=== PATIENT | male | born 1965 | race Caucasian/White ===

== ENCOUNTER 2017-04-13 08:48 | Emergency (ER) ==
[2017-04-13 08:57] VITALS: TEMP 98.2; BMI 26.9
--- NOTE | 2017-04-13 09:14 | ED.PDOC ---
General ED Provider: Dr. ÁLVARO GALINDO Chief Complaint: Tooth Problem Stated Complaint: Tooth Ache: Onset Wednesday evening. Became very uncomfortable yesterday and attempted to see dentist but ended up going to urgent care in [place], [place]. Given Rx Amoxicillin and took 1 dose yesterday which he tolerated but the 2nd dose taken last evening caused nausea and vomiting. This morning pain more severe with associate swelling in Rt sided maxillary region extending to orbit. Contacte Dentist who advised he neede to come to ER for evaluation and possible IV antibiotics. Time Seen by Physician: 09:15 Mode of Arrival: Walk-In Information Source: Patient Nursing and Triage Documentation Reviewed and Agree: Yes Reviewed sepsis parameters & appropriate labs ordered?: Yes System Inflammatory Response Syndrome: Not Applicable Sepsis Protocol: For patient's 13 years and over: Temp is 96.8 and below OR 101 and greater Pulse >90 BPM Resp >20/minute Acutely Altered Mental Status Are patient's symptoms suggestive of a new infection, such as: -Pneumonia -Skin, Soft Tissue -Endocarditis -UTI -Bone, Joint Infection -Implantable Device -Acute Abdominal Infection -Wound Infection -Meningitis -Blood Stream Catheter Infection -Unknown System Inflammatory Response Syndrome: Not Applicable EENT Complaint Exam - Dental/Oral Complaint/Exam Onset/Duration: 48 hours Symptoms Are: Worse Timing: Constant Initial Severity: Moderate Current Severity: Severe Location: Rt side jaw-face Character: Reports: Aching, Throbbing Aggravating: Reports: Chewing Alleviating: Reports: None Associated Signs and Symptoms: Reports: Swelling, Fever Related History: Reports: Similar episode Cardiac Risk Factors: Reports: None (Ongoing dental procedures for extraction of decayed teeth in anticipation of having dentures) Tooth Findings: Present: Gross decay, Gross caries, Abcess (localized pocket of abscess rt upper gum line) Facial Swelling Present: Yes Bleeding Present: No Septal Hematoma: No Foreign Body Present: No Dysphagia Present: No Drooling Present: No Asymmetrical Tonsillar Swelling Present: No Uvula Midline: Yes Jesica-tonsillar Fluctuence: No Trismus Present: No Palatal Petechiae Present: No Scarlatinaform Rash Present: No Lesions: Absent: Lip, Gums, Tongue, Buccal Mucosa, Pharynx Exanthem: Absent: Lip, Gums, Tongue, Buccal Mucosa, Pharynx Vesicles: Absent: Lip, Gums, Tongue, Buccal Mucosa, Pharynx Differential Diagnoses: Dental Abcess, Dental Caries, Periodontic Disease Review of Systems - Review Of Systems Constitutional: Denies: Chills, Diaphoresis, Fever Eyes: Denies: No symptoms, Blindness, Blurred vision, Vision change, Drainage, Foreign body sensation, Inflammation Ears, Nose, Mouth, Throat: Reports: Mouth swelling (oral/tooth pain /swelling around rt orbit) Respiratory: Reports: No symptoms Cardiac: Reports: No symptoms GI: Reports: No symptoms : Reports: No symptoms Musculoskeletal: Reports: No symptoms Skin: Reports: No symptoms Neurological: Reports: No symptoms Endocrine: Reports: No symptoms Hematologic/Lymphatic: Reports: No symptoms All Other Systems: Reviewed and Negative Past Medical History - Past Medical History Previously Healthy: Yes Endocrine: Reports: None Cardiovascular: Reports: None Respiratory: Reports: None Hematological: Reports: None Gastrointestinal: Reports: None Genitourinary: Reports: None Neuro/Psych: Reports: None Musculoskeletal: Reports: None Cancer: Reports: None Other Pertinent Past Medical History: previous similar dental problem - Surgical History General Surgical History: Reports: None - Family History Family History: Reports: None - Social History Smoking Status: Former smoker Hx Substance Use: No Alcohol Screening: None Physical Exam - Physical Exam Appearance: Well-appearing, Ill-appearing, Thin Ill-appearing: Moderate Pain Distress: Severe Eyes: RADHA, EOMI, Conjunctiva clear, Conjunctiva inflammed (Rt infraorbital edema with some swelling to inner nasal region ) ENT: Ears normal, Nose normal, Oropharynx normal Neck: Supple Respiratory: Airway patent, Breath sounds clear, Breath sounds equal Cardiovascular: RRR, Pulses normal, No rub, No murmur GI/: Soft, Nontender, No masses, Bowel sounds normal Musculoskeletal: Normal strength Skin: Warm, Dry, Normal color Neurological: Sensation intact, Motor intact Psychiatric: Affect appropriate, Mood appropriate Re-Evaluation - Re-Evaluation Time of Re-Evaluation: 09:50 Status: Unchanged Vital Signs Stable: Yes Pain Level: 9/10(Patient prefers not to receive IV Dilaudid-by self ) Appearance: NAD Critical Care Note - Critical Care Note Total Time (mins): 0 Course - Course Hematology/Chemistry: 04/13/17 09:39 04/13/17 09:39 Vital Signs: Temp Pulse Resp BP Pulse Ox 04/13/17 08:48 98.2 F 104 H 20 175/100 H 97 Departure - Departure Time of Disposition: 15:20 Disposition: HOME SELF-CARE Discharge Problem: Dental abscess, Facial swelling Instructions: Dental Abscess (ED) Condition: Good Pt referred to PMD for follow-up: Yes (See Dentist in 3-5 days) IPMP verified?: No Additional Instructions: Take amoxicillin and cleocin as directed Apply ice pack to area of swelling for pain as needed Take analgesics as needed for pain Ibuprofen 600mg every 6 hours for pain as needed and Prescription naracotic for severe pain sparingly Prescriptions: Clindamycin HCl [Cleocin HCl] 300 mg PO QID #28 capsule Allergies/Adverse Reactions: Allergies cephalexin [From Keflex] Adverse Reaction (Verified 04/13/17 08:59) Home Medications: Ambulatory Orders Amoxicillin 875 mg PO BID 04/13/17 Clindamycin HCl [Cleocin HCl] 300 mg PO QID #28 capsule 04/13/17 Disposition Discussed With: Patient
[2017-04-13] MEDS ORDERED: SODIUM CHLORIDE 1,000 ML IV STA (09:23)
[2017-04-13] MEDS ORDERED: DILAUDID 1 MG/ML SYRINGE IVP STA (09:26)
[2017-04-13] MEDS ORDERED: ZOFRAN 4 MG/2 ML IVP PRN (09:28)
[2017-04-13] MEDS ORDERED: PERCOCET 5-325 PO STA (09:49)
--- NOTE | 2017-04-13 10:55 | CT ---
EXAM: CT maxillofacial with without contrast HISTORY: Right-sided dental abscess with facial and periorbital swelling. COMPARISON: CT maxillofacial 07/06/2018 TECHNIQUE: Serial axial images of the maxillofacial structures were provided pre and post contrast. Postcontrast images were obtained after administration of 75 ml of Omnipaque 350 IV contrast. Image s were viewed in multiple planes. FINDINGS: There is subcutaneous inflammatory stranding throughout the right soft tissue facial struct ures extending superiorly to the periorbital structures. No focal fluid collection is identified. T here are osseous lucencies surrounding the posterior right lower mandibular teeth teeth with erosions . This appears to communicate with the adjacent soft tissues. No definitive fluid collection is claire ntified. There are bilateral cervical lymph nodes which are upper limit of normal likely reactive. The intracranial contents are unremarkable. The orbital globes retrobulbar structures are normal. P aranasal sinuses demonstrate maxillary sinus mucosal thickening. IMPRESSION: 1. Lucency involving the posterior right lower mandibular teeth likely representing developing absce ss/infection with inflammatory stranding and ground-glass throughout the adjacent right facial soft t issues. No definitive fluid collection or abscess is identified suggestive of soft tissue cellulitis . 2. Bilateral scattered cervical lymph nodes. 3. Mild maxillary sinus disease.
[2017-04-13] MEDS ORDERED: UNASYN 3 GM in SODIUM CHLORIDE 100 ML IV STA (11:08)
[2017-04-13] MEDS ORDERED: UNASYN ONE (11:12)
[2017-04-13 15:21] VITALS: BP 154/98
== END 2017-04-13 15:22 | disposition home or self-care (01) ==
LOC: ED 08:48
DX: K04.7 Periapical abscess without sinus (principal); K02.7 Dental root caries
CPT/HCPCS: 36415; 80053; 85025; 85651; 96361; 96365; 99283